=== PATIENT | female | born 1980 | race American Indian/Alaskan Native ===

== ENCOUNTER 2021-10-21 22:47 | Emergency (ER) | payer SELFPAY ==
[2021-10-22 03:03] VITALS: BP 116/79
--- NOTE | 2021-10-22 03:46 | Emergency Department Report ---
ED Extremity Problem HPI - General Chief complaint: Extremity Injury, Lower Stated complaint: LEFT LEG SWOLLEN WITH NUMBNESS,TINGLING, AND PAIN Time Seen by Provider: 10/22/21 03:29 Source: patient, family Mode of arrival: Ambulatory Limitations: No Limitations - History of Present Illness Initial comments: 41-year-old female presents to the ER today with complaints of pain to her knee radiating all the way down to her ankles. Patient states that her pain started about 4 days ago. She reports associated swelling. She states the pain is worse when she stands and walks. She denies any particular injury and she denies any strenuous activity. She states that she works from home and does a lot of sitting. She states that she has been taking couj-erq-gljvinh medication and try to elevate it without much relief. She denies any redness or bruising or warmth to the knee or the leg. She denies any prior issues or surgical intervention to her knee in the past. She reports no chest pain or shortness of breath or any additional symptoms at this time. MD Complaint: joint swelling, joint paint -: days(s) (4) Severity scale (0 -10): 3 - Related Data Previous Rx's Medication Instructions Recorded Last Taken Type Ketorolac [Toradol] 10 mg PO Q6H PRN #20 10/22/21 Unknown Rx methylPREDNISolone [Medrol 4MG 4 mg PO DAILY #1 pack 10/22/21 Unknown Rx DOSEPAK (21 tabs)] Allergies Allergy/AdvReac Type Severity Reaction Status Date / Time Sulfa (Sulfonamide Allergy Shortness Verified 10/22/21 03:01 Antibiotics) of Breath ED Review of Systems ROS: Stated complaint: LEFT LEG SWOLLEN WITH NUMBNESS,TINGLING, AND PAIN Other details as noted in HPI Comment: All other systems reviewed and negative Constitutional: denies: chills, fever Eyes: denies: eye pain, eye discharge, vision change Respiratory: denies: cough, shortness of breath, SOB with exertion, SOB at rest, wheezing Cardiovascular: denies: chest pain, palpitations, dyspnea on exertion, edema, syncope, paroxysmal nocturnal dyspnea Gastrointestinal: denies: abdominal pain, nausea, diarrhea, constipation, hematemesis, hematochezia Genitourinary: denies: urgency, dysuria, frequency, hematuria, discharge, abnormal menses, dyspareunia Musculoskeletal: joint swelling, arthralgia. denies: myalgia Skin: denies: rash, lesions, change in color, change in hair/nails, pruritus Neurological: denies: headache, weakness, numbness, paresthesias, confusion, abnormal gait, vertigo Psychiatric: denies: anxiety, depression, auditory hallucinations, visual hallucinations, homicidal thoughts, suicidal thoughts Hematological/Lymphatic: denies: easy bleeding, easy bruising, swollen glands ED Past Medical Hx - Past Medical History Previous Medical History?: Yes Hx Arthritis: Yes Hx Asthma: Yes Hx Tuberculosis: ([place] Trait) Additional medical history: Mitral Valve Prolapse, - Surgical History Past Surgical History?: Yes Additional Surgical History: C-Sec, [place] teeth, Rt 5th digit - Medications Home Medications: Home Medications Medication Instructions Recorded Confirmed Last Taken Type Ketorolac [Toradol] 10 mg PO Q6H PRN #20 10/22/21 Unknown Rx methylPREDNISolone [Medrol 4MG 4 mg PO DAILY #1 pack 10/22/21 Unknown Rx DOSEPAK (21 tabs)] ED Physical Exam - General Limitations: No Limitations General appearance: alert, in no apparent distress - Head Head exam: Present: atraumatic, normocephalic, normal inspection - Eye Eye exam: Present: normal appearance, PERRL, EOMI Pupils: Present: normal accommodation - Respiratory Respiratory exam: Present: normal lung sounds bilaterally. Absent: respiratory distress, wheezes, rales - Cardiovascular Cardiovascular Exam: Present: regular rate, normal rhythm, normal heart sounds - Extremities Exam Extremities exam: Present: full ROM (She does have full range of motion of the left knee, but she has pain on flexion), tenderness (Mainly over the suprapatellar area left knee ), normal capillary refill, joint swelling (mild), other (Mild swelling noted to the left knee and left lower leg when compared to the right. Swelling is soft and nonpitting; no apparent joint swelling; no skin discoloration; dorsalis pedis pulse normal). Absent: calf tenderness - Neurological Exam Neurological exam: Present: alert, oriented X3, CN II-XII intact, other (Mild limping gait) - Psychiatric Psychiatric exam: Present: normal affect, normal mood - Skin Skin exam: Present: intact ED Course Vital Signs 10/22/21 02:53 Temperature 98.5 F Pulse Rate 66 Respiratory 16 Rate Blood Pressure 116/79 [Right] O2 Sat by Pulse 100 Oximetry ED Medical Decision Making - Radiology Data Radiology results: report reviewed Patient: VISHAL BALL MR#: [id number] : 1980 Acct:[id number] Age/Sex: 41 / F ADM Date: 10/21/21 Loc: ED Attending Dr: Ordering Physician: DANNY VIRGEN Date of Service: 10/22/21 Procedure(s): XR knee 3V LT Accession Number(s): [id number] cc: DANNY VIRGEN Fluoro Time In Minutes: LEFT KNEE 3 VIEW(S) INDICATION / CLINICAL INFORMATION: knee swelling;pain COMPARISON: None available. FINDINGS: BONES / JOINT(S): No acute fracture or subluxation. No significant arthritis. SOFT TISSUES: No significant abnormality. ADDITIONAL FINDINGS: None. IMPRESSION: 1.No acute findings. No significant abnormality. Signer Name: Mita Hanson II, MD Signed: 10/22/2021 4:12 AM Workstation Name: [id number] Transcribed By: DESMOND Dictated By: MITA HANSON II, MD Electronically Authenticated By: MITA HANSON II, MD Signed Date/Time: 10/22/21411 DD/ 0 TD/TT: - Medical Decision Making X-ray of the knee shows nothing occluded. Venous Dopplers negative for DVT. Patient exam does not suggest septic joint, cellulitis, acute arterial occlusion, and she has no chest pain or shortness of breath, she has a mild limping gait but otherwise normal and lower extremity neurovascular intact. She is not toxic or ill-appearing. She denies any significant distress. Discussed results with patient. Recommend follow-up with [facility] specialist for further evaluation but in the meantime we will give her some medication to help with pain and inflammation. Patient expressed understanding agree with plan. Patient was stable at time of discharge. Critical care attestation.: If time is entered above; I have spent that time in minutes in the direct care of this critically ill patient, excluding procedure time. ED Disposition Clinical Impression: Left knee pain Disposition: HOME / SELF CARE / HOMELESS Is pt being admited?: No Does the pt Need Aspirin: No Condition: Stable Instructions: Acute Knee Pain, Adult Additional Instructions: Recommend that you continue wearing the knee brace or use an Michel wrap and continue elevating the leg as often as possible to help with swelling. Take the Toradol and the Medrol Dosepak as prescribed. I do recommend that you follow- up with strategic sour[facility] specialist especially if your symptoms persist for further evaluation and possible outpatient MRI. Return to the ER if your symptoms changes in any way. Prescriptions: methylPREDNISolone [Medrol 4MG DOSEPAK (21 tabs)] 4 mg PO DAILY #1 pack Ketorolac [Toradol] 10 mg PO Q6H PRN #20 PRN Reason: Pain Referrals: GORAN JEREZ MD [Staff Physician] - 3-5 Days Time of Disposition: 05:45
--- NOTE | 2021-10-22 04:16 | XRay Report ---
LEFT KNEE 3 VIEW(S) INDICATION / CLINICAL INFORMATION: knee swelling;pain COMPARISON: None available. FINDINGS: BONES / JOINT(S): No acute fracture or subluxation. No significant arthritis. SOFT TISSUES: No significant abnormality. ADDITIONAL FINDINGS: None. IMPRESSION: 1.No acute findings. No significant abnormality. Signer Name: Parveen Betancur II, MD Signed: 10/22/2021 4:12 AM Workstation Name: [email or web address] [id number]
--- NOTE | 2021-10-22 06:02 | Vascular Lab Report ---
DUPLEX DOPPLER LOWER EXTREMITY VEINS, BILATERAL INDICATION / CLINICAL INFORMATION: leg swelling. TECHNIQUE: Duplex doppler imaging was performed through the veins of both lower extremities using mellissa ous compression and other maneuvers. COMPARISON: None available. FINDINGS: RIGHT COMMON FEMORAL VEIN: Negative. RIGHT FEMORAL VEIN: Negative. RIGHT POPLITEAL VEIN: Negative. RIGHT CALF VEINS: Negative. LEFT COMMON FEMORAL VEIN: Negative. LEFT FEMORAL VEIN: Negative. LEFT POPLITEAL VEIN: Negative. LEFT CALF VEINS: Negative. ADDITIONAL FINDINGS: None. IMPRESSION: 1. No sonographic evidence for DVT in either lower extremity. Signer Name: Parveen Betancur II, MD Signed: 10/22/2021 5:58 AM Workstation Name: [id number]
== END 2021-10-22 06:16 | disposition home or self-care (01) ==
LOC: ED 22:47
DX: M25.561 Pain in right knee (principal); J45.909 Unspecified asthma, uncomplicated; M19.90 Unspecified osteoarthritis, unspecified site; Z98.890 Other specified postprocedural states; Z88.2 Allergy status to sulfonamides; Z79.899 Other long term (current) drug therapy
CPT/HCPCS: 93970; 99284